=== PATIENT | male | born 1970 | race Caucasian/White ===

== ENCOUNTER → 2018-05-25 | Outpatient (CLI) | payer OTHER ==
--- NOTE | 2018-05-25 12:56 | XR ---
EXAM TYPE: LUMBAR SPINE X RAY SERIES COMPARISON: NONE HISTORY: Back pain TECHNIQUE: 4 views are submitted. FINDINGS: Alignment is anatomic. The pedicles are intact. The transverse processes are intact. There is no s pondylolysis or spondylolisthesis. No compression deformities. Hypertrophic and degenerative changes are seen at levels L3-S1. IMPRESSION: 1. Multilevel hypertrophic and degenerative change most marked findings at L3-S1..
== END | disposition home or self-care (01) ==
LOC: RADXRMAIN 12:23
PROVIDERS: ATTEND Family Medicine
DX: M47.817 Spondylosis without myelopathy or radiculopathy, lumbosacral region (principal)
CPT/HCPCS: 72110

== ENCOUNTER → 2018-05-25 | Outpatient (CLI) | payer OTHER ==
[2018-05-25 13:23] LABS: HCT 50.5 % (39.0-53.0); HGB 16.4 gm/dL (13.0-17.5); MCH 30.2 pg (25.0-35.0); MCHC 32.5 g/dL (31.0-37.0); MCV 92.8 fL (80.0-100.0); Mean Platelet Volume 8.4; Platelet Count 147 k/uL (150-450); RBC 5.44 m/uL (4.30-5.90); RDW 13.7 % (11.5-15.5)
[2018-05-25 13:40] LABS: Potassium 4.5 mmol/L (3.5-5.1)
== END | disposition home or self-care (01) ==
LOC: LABPAT 12:07
PROVIDERS: ATTEND Internal Medicine Cardiovascular Disease
DX: Z01.812 Encounter for preprocedural laboratory examination (principal); R07.2 Precordial pain
CPT/HCPCS: 36415; 80051; 82565; 84520; 85027

== ENCOUNTER 2018-05-30 01:45 | Observation (INO) | payer OTHER ==
[2018-05-30 02:14] LABS: Basophils % (A) 1 %; Eosinophils # (A) 0.3 k/uL (0-0.7); Eosinophils % (A) 3 %; HCT 48.9 % (39.0-53.0); Lymphocytes # (A) 1.9 k/uL (1.0-4.8); Lymphocytes % (A) 22 %; MCH 29.8 pg (25.0-35.0); MCHC 32.8 g/dL (31.0-37.0); MCV 90.9 fL (80.0-100.0); Mean Platelet Volume 8.2; Monocytes # (A) 0.4 k/uL (0-1.0); Monocytes % (A) 5 %; Neutrophils % (A) 68 %; Platelet Count 157 k/uL (150-450); RBC 5.38 m/uL (4.30-5.90); RDW 13.9 % (11.5-15.5); WBC 8.8 k/uL (3.8-10.6)
--- NOTE | 2018-05-30 02:14 | XR ---
EXAMINATION TYPE: XR chest 1V portable DATE OF EXAM: 05/30/2018 COMPARISON: NONE HISTORY: Chest pain TECHNIQUE: Single frontal view of the chest is obtained. FINDINGS: Heart and mediastinum are normal. Lungs are clear. Diaphragm is normal. Bony thorax appear s normal. There are chest leads. IMPRESSION: Normal chest
[2018-05-30 02:23] LABS: ALT 40 U/L (21-72); AST 22 U/L (17-59); Albumin 3.7 g/dL (3.5-5.0); Alkaline Phosphatase 58 U/L (38-126); Anion Gap 8 mmol/L; Blood Urea Nitrogen 9 mg/dL (9-20); Calcium 9.5 mg/dL (8.4-10.2); Carbon Dioxide 24 mmol/L (22-30); Chloride 109 mmol/L (98-107); Glucose 136 mg/dL (74-99); Partial Thromboplastin Time 23.6 sec (22.0-30.0); Potassium 4.4 mmol/L (3.5-5.1); Prothrombin Time 9.6 sec (9.0-12.0); Sodium 141 mmol/L (137-145); Total Bilirubin 0.4 mg/dL (0.2-1.3); Total Protein 6.9 g/dL (6.3-8.2)
[2018-05-30 02:36] LABS: Creatine Kinase 156 U/L (55-170)
--- NOTE | 2018-05-30 02:39 | ED ---
Chest Pain HPI - General Chief Complaint: Chest Pain Stated Complaint: chest pain Time Seen by Provider: 05/30/18 01:54 Source: patient, family Mode of arrival: ambulatory Limitations: no limitations - History of Present Illness Initial Comments: This patient is a 47-year-old man who presents to be evaluated for substernal chest pain. He indicates the area just above the epigastric area. The patient states the pain started around 10:30 tonight, while he was just sitting. He describes as a sharp pain. He indicates that it seems to radiate towards the right side of the chest. He has not found any factors that seem to make the pain better or worse. MD Complaint: chest pain -: hour(s) Onset: during rest Pain Location: substernal, right chest Severity: moderate Quality: sharp Consistency: constant Improves With: nothing Worsens With: nothing Treatments Prior to Arrival: none - Related Data Home Medications Medication Instructions Recorded Confirmed Aspirin [Adult Low Dose Aspirin EC] 81 mg PO HS 05/29/18 05/30/18 Atorvastatin [Lipitor] 40 mg PO HS 05/29/18 05/30/18 Cetirizine HCl [Zyrtec] 10 mg PO HS 05/29/18 05/30/18 Isosorbide Mononitrate [Isosorbide 30 mg PO DAILY 05/29/18 05/30/18 Mononitrate ER] Metoprolol Tartrate 25 mg PO HS 05/29/18 05/30/18 buPROPion HCL [Wellbutrin SR] 150 mg PO HS 05/29/18 05/30/18 Allergies Allergy/AdvReac Type Severity Reaction Status Date / Time No Known Allergies Allergy Verified 05/30/18 01:49 Review of Systems ROS Statement: Those systems with pertinent positive or pertinent negative responses have been documented in the HPI. ROS Other: All systems not noted in ROS Statement are negative. Constitutional: Denies: fever, chills Respiratory: Denies: cough, dyspnea Cardiovascular: Reports: as per HPI, chest pain. Denies: palpitations, edema, syncope Gastrointestinal: Denies: abdominal pain, nausea, vomiting Genitourinary: Denies: dysuria, hematuria Musculoskeletal: Denies: back pain Skin: Denies: rash Neurological: Denies: headache EKG Findings - EKG Results: EKG: interpreted by CHICHI, sinus rhythm (With sinus arrhythmia, rate 64 bpm), normal QRS, normal ST/T - Blocks, [place], Hypertrophy, ST Abn: QRS axis and voltage: right axis deviation (+90 to +180) Past Medical History Past Medical History: Asthma, Chest Pain / Angina, GERD/Reflux, Hyperlipidemia, Pneumonia History of Any Multi-Drug Resistant Organisms: None Reported Additional Past Surgical History / Comment(s): oral surgery Past Anesthesia/Blood Transfusion Reactions: No Reported Reaction Past Psychological History: Depression Smoking Status: Current every day smoker - Past Family History Mother Family Medical History: No Reported History General Exam Limitations: no limitations General appearance: alert, in no apparent distress Head exam: Present: atraumatic, normocephalic Eye exam: Present: normal appearance. Absent: scleral icterus, conjunctival injection Respiratory exam: Present: normal lung sounds bilaterally, respiratory distress , wheezes. Absent: rales, rhonchi, stridor, chest wall tenderness Cardiovascular Exam: Present: regular rate, normal rhythm, normal heart sounds. Absent: systolic murmur, diastolic murmur, rubs, gallop GI/Abdominal exam: Present: soft. Absent: distended, tenderness, guarding, rebound, rigid, mass, pulsatile mass, hernia Extremities exam: Present: normal inspection, normal capillary refill. Absent: pedal edema, calf tenderness Back exam: Present: normal inspection. Absent: CVA tenderness (R), CVA tenderness (L) Neurological exam: Present: alert Skin exam: Present: warm, dry, intact, normal color. Absent: rash Course Vital Signs 05/30/18 05/30/18 01:47 02:15 Temperature 98.5 F Pulse Rate 63 Pulse Rate [ 60 Steamfitter ] Respiratory 18 22 Rate O2 Sat by Pulse 98 Oximetry Disposition Clinical Impression: Chest pain Disposition: ADMITTED IP TO THIS HOSP Condition: Fair Instructions: Chest Pain (ED) Is patient prescribed a controlled substance at d/c from ED?: No Referrals: Ladonna Bradley MD [Primary Care Provider] - 1-2 days
[2018-05-30 02:47] LABS: Creatine Kinase MB 0.9 ng/mL (0.0-2.4)
[2018-05-30 02:49] LABS: Troponin I <0.012 ng/mL (0.000-0.034)
[2018-05-30] MEDS ORDERED: NITROGLYCERIN SL TABS 0.4 MG TAB SUBLINGUAL PRN ×2 (03:56→07:15)
[2018-05-30 05:13] VITALS: RESP 18; BMI 38.0
[2018-05-30] MEDS ORDERED: ATORVASTATIN 80 MG TAB PO STA (07:15)
[2018-05-30] MEDS ORDERED: ALPRAZolam 0.5 MG TAB PO PRN (07:15)
[2018-05-30] MEDS ORDERED: ALPRAZolam 0.25 MG TAB PO PRN (07:15)
[2018-05-30] MEDS ORDERED: SODIUM CHLORIDE 0.9% 1,000 ML in EMPTY BAG 1 BAG IV ONE (07:15)
[2018-05-30] MEDS ORDERED: ASPIRIN 325 MG TAB PO STA (07:15)
--- NOTE | 2018-05-30 07:37 | CONS ---
CONSULTATION Mr. Nichols is a 47-year-old male with known history of chronic tobacco use. He has been followed by Dr. Caldwell and presented with symptoms of chest discomfort. The discomfort occurred at rest. He has been having chest discomfort on and off in the past and recently underwent a myocardial perfusion imaging that revealed evidence of a fixed inferior wall defect with segmental wall motion abnormality and impairment left ventricular systolic function by echocardiography. The patient has been complaining of progressive dyspnea on exertion as well as the symptoms of chest pain. His discomfort in the chest is not always exertional pattern. He denies any associated dizziness or palpitation. He has no syncope. He has no PND, orthopnea, or peripheral edema. His coronary risk factors remarkable for smoking and hypertension and hyperlipidemia. He is a nondiabetic. MEDICATION: His medications at home include Wellbutrin, metoprolol tartrate 25 mg daily, isosorbide mononitrate 30 mg daily, Zyrtec, Lipitor 4 mg daily, aspirin once a day. REVIEW OF SYSTEMS: RESPIRATORY SYSTEM: He has dyspnea on exertion. No recent wheezing or cough. GI SYSTEM: No recent GI bleeding. No peptic ulcer disease., SYSTEM: No dysuria or hematuria. NERVOUS SYSTEM: No stroke or seizure. PHYSICAL EXAMINATION: He is a 47-year-old male, alert, oriented, in no apparent distress. Blood pressure 146/79 with the heart rate in the 50s. HEAD: Normocephalic. EYES: Sclerae anicteric. NECK: Good upstroke. No bruit. No jugular venous distention. LUNGS: Clear to auscultation. HEART: Regular rate and rhythm. S1, S2. No S3. No rub. ABDOMEN: Soft, nontender. Positive bowel sounds. No organomegaly. EXTREMITIES: No edema. Intact distal pulses. LAB DATA: Lab data revealed a troponin of less than 0.012 for one sample. BUN and creatinine 9 and 1.08. Hemoglobin of 16. EKG revealed a sinus mechanism, normal axis and intervals, with sinus arrhythmia. No acute changes. Chest x-ray, no acute changes. IMPRESSION: 1. Symptoms of chest discomfort in a patient with history of cardiomyopathy noted on his most recent stress test and echocardiogram. There was suggestion of ischemic cardiomyopathy with inferior wall defect. The patient was scheduled to undergo cardiac catheterization this coming . 2. Chronic tobacco use. 3. Hypertension. 4. Hyperlipidemia. RECOMMENDATION: From the cardiac standpoint, I would recommend to proceed with the coronary angiography as scheduled. He will be scheduled to undergo the procedure today by Dr. Caldwell and depending on the results of testing, further recommendation will be made. Thank you for this consult. We will follow with you. [id number] / IJN: [id number] /
[2018-05-30 08:49] LABS: Creatine Kinase MB 0.9 ng/mL (0.0-2.4); Troponin I 0.013 ng/mL (0.000-0.034)
[2018-05-30] MEDS ORDERED: fentaNYL (PF) 50 MCG/ML 2 ML AMP ONE (08:57)
[2018-05-30] MEDS ORDERED: LIDOCAINE 1% INJ 10MG/ML (20 ML MDV) ONE (08:57)
[2018-05-30] MEDS ORDERED: MIDAZOLAM 2 MG/2 ML VIAL ONE (08:57)
[2018-05-30] MEDS ORDERED: ISOSORBIDE MONONITRATE ER 30 MG TAB.ER.24H PO SCH (09:00)
[2018-05-30] MEDS ORDERED: IV FLUID CONTINUATION 1,000 ML IV ONE (09:10)
[2018-05-30] MEDS: MIDAZOLAM 2 MG/2 ML VIAL IVP ONE ×2 (09:24→09:29)
[2018-05-30] MEDS ORDERED: fentaNYL (PF) 50 MCG/ML 2 ML AMP IVP ONE (09:24)
[2018-05-30] MEDS ORDERED: LIDOCAINE 1% INJ 10MG/ML (20 ML MDV) SQ ONE (09:28)
[2018-05-30] MEDS ORDERED: IOPAMIDOL-370 125ML BTL INJ ONE (09:49)
[2018-05-30] MEDS ORDERED: RX INFO: IV CONTRAST WAS GIVEN 1 EACH MISC MISCELLANE PRN (09:56)
[2018-05-30] MEDS ORDERED: SODIUM CHLORIDE 0.9% 1,000 ML IV SCH (10:00)
[2018-05-30 10:07] VITALS: TEMP 98.1
--- NOTE | 2018-05-30 10:08 | CC ---
CARDIAC CATHETERIZATION REPORT INDICATION: Unstable angina. PROCEDURE NOTE: After obtaining informed consent, left heart catheterization and coronary angiogram were performed via the right femoral artery using standard Ary catheters. The patient tolerated the procedure well without any obvious immediate complications. A femoral angiogram was performed and Angio-Seal was deployed. The patient received moderate conscious sedation and total sedation time was 16 minutes. FINDINGS: 1. HEMODYNAMICS: Left ventricular end-diastolic pressure is 8 to 12 mm. There is no significant gradient across the aortic valve. 2. LEFT VENTRICULOGRAM: Left ventriculogram is not performed. 3. ANGIOGRAPHIC DATA: 4. Left main coronary artery: Left main coronary artery is a normal-sized vessel and is free of stenosis. Divides into left anterior descending coronary artery and circumflex coronary artery. LAD along with the diagonal branches show a mild atherosclerotic plaque. Circumflex coronary artery in the very distal AV groove circumflex there is a 50% to 60% stenosis, but distal to that there is just 2 small branches. Right coronary artery is a large dominant vessel that shows mild nonobstructive disease. CONCLUSIONS: 1. Mild coronary artery disease. 2. A 50% to 60% stenosis involving distal circumflex coronary artery. I reviewed angiographic data with Dr. Kelly who did not feel he would benefit from angioplasty. We will treat him with optimal medical therapy and risk factor modification and let him return to work. MMODL / IJN: [id number] /
[2018-05-30 13:10] VITALS: BP 98/52; PULSE 70
[2018-05-30 15:15] LABS: Creatine Kinase 101 U/L (55-170)
[2018-05-30 15:28] LABS: Creatine Kinase MB 0.8 ng/mL (0.0-2.4); Troponin I <0.012 ng/mL (0.000-0.034)
--- NOTE | 2018-05-30 15:33 | P.DS ---
Providers Date of admission: 05/30/18 03:56 Attending physician: Otis Luong Consults: 05/30/18 03:56 Consult Physician Routine Consulting Provider: Maxi Caldwell Consult Reason/Comments: chest pain Do you want consulting provider notified?: Yes Primary care physician: Ladonna Bradley [facility] Course: Please refer to my HPI Patient Condition at Discharge: Fair Plan - Discharge Summary New Discharge Prescriptions: No Action buPROPion HCL [Wellbutrin SR] 150 mg PO HS Metoprolol Tartrate 25 mg PO HS Isosorbide Mononitrate [Isosorbide Mononitrate ER] 30 mg PO DAILY Cetirizine HCl [Zyrtec] 10 mg PO HS Atorvastatin [Lipitor] 40 mg PO HS Aspirin [Adult Low Dose Aspirin EC] 81 mg PO HS Discharge Medication List Aspirin [Adult Low Dose Aspirin EC] 81 mg PO HS 05/29/18 [History] Atorvastatin [Lipitor] 40 mg PO HS 05/29/18 [History] Cetirizine HCl [Zyrtec] 10 mg PO HS 05/29/18 [History] Isosorbide Mononitrate [Isosorbide Mononitrate ER] 30 mg PO DAILY 05/29/18 [ History] Metoprolol Tartrate 25 mg PO HS 05/29/18 [History] buPROPion HCL [Wellbutrin SR] 150 mg PO HS 05/29/18 [History] Follow up Appointment(s)/Referral(s): Ladonna Bradley MD [Primary Care Provider] - 1-2 days Maxi Caldwell MD [STAFF PHYSICIAN] - 1 Week (Appointment made for groin check on Jun.05 @ 4:00pm.) Patient Instructions/Handouts: *Surgery [facility] - After Heart Catheterization - 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
--- NOTE | 2018-05-30 15:33 | P.HPIM ---
History of Present Illness Patient is a pleasant 47-year-old the male with a history of chronic tobacco use came in with epigastric abdominal sharp pain radiating to the right side of the abdomen and to the back. Patient still has had his gallbladder. Patient discomfort occurred at rest not related to food not related to deep breathing. Denied and diaphoresis shortness of breath nausea. His pain was severe yesterday completely resolved at this time. Patient underwent cardiac catheterization which did not show any stent table coronary occlusive disease but there is significant atherosclerotic vascular disease for which cardiology is recommending lifestyle modifications and medication changes. I believe his a metoprolol need to be switched to 12.5 twice a day at 25 long-acting patient is presently on 25 metoprolol at this time. Patient is already in statin and aspirin. Dietary modifications lifestyle modifications including quitting smoking counseling was provided. Patient had a recent myocardial perfusion imaging which did show some fixative the inferior wall defects. Review of Systems REVIEW OF SYSTEMS: CONSTITUTIONAL: No fever, no malaise, no fatigue. HEENT: No recent visual problems or hearing problems. Denied any sore throat. CARDIOVASCULAR: No orthopnea, PND, no palpitations, no syncope. PULMONARY: No shortness of breath, no cough, no hemoptysis. GASTROINTESTINAL: No diarrhea, no nausea, no vomiting, no abdominal pain. Normoactive bowel sounds. NEUROLOGICAL: No headaches, no weakness, no numbness. HEMATOLOGICAL: Denies any bleeding or petechiae. GENITOURINARY: Denies any burning micturition, frequency, or urgency. MUSCULOSKELETAL/RHEUMATOLOGICAL: Denies any joint pain, swelling, or any muscle pain. ENDOCRINE: Denies any polyuria or polydipsia. The rest of the 14-point review of systems is negative. Past Medical History Past Medical History: Asthma, Chest Pain / Angina, GERD/Reflux, Hyperlipidemia, Pneumonia History of Any Multi-Drug Resistant Organisms: None Reported Additional Past Surgical History / Comment(s): oral surgery Past Anesthesia/Blood Transfusion Reactions: No Reported Reaction Past Psychological History: Depression Smoking Status: Current every day smoker Past Alcohol Use History: Rare Additional Past Alcohol Use History / Comment(s): started smoking age 18, smokes 1 pack/day Past Drug Use History: None Reported - Past Family History Mother Family Medical History: COPD Additional Family Medical History / Comment(s): says something wrong with "electrical side of heart" Medications and Allergies Home Medications Medication Instructions Recorded Confirmed Type Aspirin [Adult Low Dose Aspirin EC] 81 mg PO HS 05/29/18 05/30/18 History Atorvastatin [Lipitor] 40 mg PO HS 05/29/18 05/30/18 History Cetirizine HCl [Zyrtec] 10 mg PO HS 05/29/18 05/30/18 History Isosorbide Mononitrate [Isosorbide 30 mg PO DAILY 05/29/18 05/30/18 History Mononitrate ER] Metoprolol Tartrate 25 mg PO HS 05/29/18 05/30/18 History buPROPion HCL [Wellbutrin SR] 150 mg PO HS 05/29/18 05/30/18 History Allergies Allergy/AdvReac Type Severity Reaction Status Date / Time No Known Allergies Allergy Verified 05/30/18 01:49 Physical Exam Vitals: Vital Signs Temp Pulse Pulse Pulse Resp BP BP 05/30/18 12:45 70 05/30/18 11:45 65 05/30/18 11:15 53 L 05/30/18 10:45 74 05/30/18 10:30 64 05/30/18 10:15 70 05/30/18 10:00 98.1 F 69 18 05/30/18 07:25 97.8 F 64 18 121/65 05/30/18 05:48 55 L 18 05/30/18 04:30 98.0 F 55 L 18 146/79 05/30/18 04:08 80 20 148/89 05/30/18 03:08 56 L 20 147/93 05/30/18 02:15 60 22 05/30/18 01:47 98.5 F 63 18 BP Pulse Ox 05/30/18 12:45 98/52 96 05/30/18 11:45 117/65 96 05/30/18 11:15 102/56 97 05/30/18 10:45 108/49 93 L 05/30/18 10:30 107/65 94 L 05/30/18 10:15 100/61 96 05/30/18 10:00 105/63 95 05/30/18 07:25 95 05/30/18 05:48 05/30/18 04:30 97 05/30/18 04:08 96 05/30/18 03:08 96 05/30/18 02:15 05/30/18 01:47 98 Intake and Output 05/30/18 05/30/18 05/30/18 06:59 14:59 22:59 Intake Total 800 Balance 800 Intake: IV 200 Oral 600 Other: Voiding Method Toilet Urinal # Voids 1 Weight 131 kg PHYSICAL EXAMINATION: GENERAL: The patient is alert and oriented x3, not in any acute distress. Obese HEENT: Pupils are round and equally reacting to light. EOMI. No scleral icterus. No conjunctival pallor. Normocephalic, atraumatic. No pharyngeal erythema. No thyromegaly. CARDIOVASCULAR: S1 and S2 present. No murmurs, rubs, or gallops. PULMONARY: Chest is clear to auscultation, no wheezing or crackles. ABDOMEN: Soft, nontender, nondistended, normoactive bowel sounds. No palpable organomegaly. MUSCULOSKELETAL: No joint swelling or deformity. EXTREMITIES: No cyanosis, clubbing, or pedal edema. NEUROLOGICAL: Gross neurological examination did not reveal any focal deficits. SKIN: No rashes. Results CBC & Chem 7: 05/30/18 01:55 05/30/18 01:55 Labs: Abnormal Lab Results - Last 24 Hours (Table) 05/30/18 Range/Units 01:55 Chloride 109 H (98-107) mmol/L Glucose 136 H (74-99) mg/dL Thrombosis Risk Factor Assmnt - Choose All That Apply Any of the Below Risk Factors Present?: Yes Each Factor Represents 1 point: Age 41-60 years, Obesity (BMI >25) Thrombosis Risk Factor Assessment Total Risk Factor Score: 2 Thrombosis Risk Factor Assessment Level: Low Risk Assessment and Plan Plan: -Chest pain: Patient had mild coronary artery disease about 50-60% stenosis involving the distal circumflex, medical therapy at this time. Cardiology will help with his a discharge cardiac medications. If patient can use to have this pain gallbladder disease need to be considered and will need a gallbladder ultrasound. -Nicotine abuse: Counseling was provided -Obesity: Counseling was provided -Gastroesophageal reflux disease -Hyperlipidemia -Asthma without any acute exacerbation Patient will be discharged today if cleared by cardiology. Patient underwent cardiac catheterization today.
[2018-05-30] MEDS ORDERED: ACETAMINOPHEN TAB 325 MG TAB PO PRN (15:44)
[2018-05-30] MEDS ORDERED: NON-FORMULARY DRUG (Aspirin [Adult Low Dose Aspirin Ec] 81 MG) PO SCH (21:00)
[2018-05-30] MEDS ORDERED: buPROPion SR 150 MG TABLET.ER PO SCH (21:00)
[2018-05-30] MEDS ORDERED: METOPROLOL TARTRATE 25 MG TAB PO SCH (21:00)
[2018-05-31] MEDS ORDERED: ASPIRIN 325 MG TAB PO SCH (09:00)
[2018-05-31] MEDS ORDERED: ATORVASTATIN 40 MG TAB PO SCH (21:00)
== END 2018-05-30 17:25 | disposition home or self-care (01) ==
LOC: EC 01:45 → 3OBS 03:56
PROVIDERS: ADMIT Hospitalist; ATTEND Hospitalist
DX: R07.89 Other chest pain (principal); R10.13 Epigastric pain; I11.9 Hypertensive heart disease without heart failure; I25.10 Atherosclerotic heart disease of native coronary artery without angina pectoris; K21.9 Gastro-esophageal reflux disease without esophagitis; J45.909 Unspecified asthma, uncomplicated; E78.5 Hyperlipidemia, unspecified; F32.9 Major depressive disorder, single episode, unspecified; F17.210 Nicotine dependence, cigarettes, uncomplicated; E66.9 Obesity, unspecified; Z68.38 Body mass index [BMI] 38.0-38.9, adult; Z79.82 Long term (current) use of aspirin; Z79.899 Other long term (current) drug therapy; Z87.01 Personal history of pneumonia (recurrent); Z82.5 Family history of asthma and other chronic lower respiratory diseases; Z82.49 Family history of ischemic heart disease and other diseases of the circulatory system
CPT/HCPCS: 99285; 36415; 93005; 80053; 82550; 82553; 83735; 84484; 85025; 85610; 85730; 71045; G0378; J2250; J2001; J3010; Q9967